=== PATIENT | female | born 1985 ===

== ENCOUNTER 2024-01-10 08:07 | Outpatient (AMB) | payer OTHER, SELFPAY ==
--- NOTE | 2024-01-10 08:07 | AM.OFFWIN_ITS ---
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 She denies any constipation fevers or diarrhea, she states she has been to the emergency room for these issues in the ruled out any acute issues. She states she went to the day [facility] last May and her symptoms have gotten worse since then. She has tried removing lactose from her diet with no improvement she has tried removing gluten from her diet with no improvement. She has tried getting in with her primary care physician but is unable to get in with him until May. Patient is also looking for a referral to warm in worker as she has an itchy dry scalp. She has tried many different shampoos and treatments including selenium shampoo. She does take an allergy pill daily. She is unable to see her PCP to get this referral. [facility] Social History Patient Tobacco Use Status: Never used Tobacco Review of Systems Const All systems reviewed & are unremarkable except as noted in HPI and below Physical Exam Vital Signs: Last Vital Signs Temp 98.7 F 01/10/24 08:11 Pulse 67 01/10/24 08:11 BP 110/68 01/10/24 08:11 Pulse Ox 99 01/10/24 08:11 Oxygen Delivery Method Room Air 01/10/24 08:11 BMI result Body Mass Index 26.7 Const General: cooperative, healthy appearing, comfortable, no acute distress and well developed Orientation/consciousness: patient oriented x3 Limitations: no limitations HEENT Head: Yes other (dry scalp with large white flakes) Eyes General: appearance normal, both eyes and all related structures Neck Neck: Yes normal visual inspection and Yes full ROM Resp Effort & Inspection: normal respiratory effort and able to speak in complete sentences GI Inspection: Yes normal to inspection Palpation (GI): Soft to palpation and nontender Skin General skin exam: no rashes or lesions noted Neuro General: patient oriented x3 Extrem General: Yes normal to inspection Assessment & Plan Assessment & Plan (1) Abdominal bloating: Code(s): R14.0 - Abdominal distension (gaseous) Plan: Performed H pylori breath test in office, advised if it comes back negative, I will try to get patient in with Dr. Rodas before May. (2) Dry scalp: Code(s): R23.8 - Other skin changes Plan: Sent referral for Dermatology Plan see above Orders: Orders H Pylori Breath Test Today R14.0 - Abdominal distension (gaseous) Referrals Dermatology Referral R23.8 - Other skin changes Coding Level of Care Code New Pt Level 4 (95066) Diagnoses Abdominal bloating R14.0 Dry scalp R23.8
[2024-01-10 08:11] VITALS: BP 110/68; PULSE 67; TEMP 37.1; O2SAT 99; BMI 26.7
== END 2024-01-10 09:16 | disposition home or self-care (01) ==
PROVIDERS: PCP Family Medicine; Visit Provider Physician Assistant
DX: R14.0 Abdominal distension (gaseous) (principal); R23.8 Other skin changes
CPT/HCPCS: 99203

== ENCOUNTER 2024-01-10 10:27 | Outpatient (REF) | payer OTHER, SELFPAY ==
[2024-01-10 13:19] LABS: H Pylori Breath Test Negative (Negative)
== END 2024-01-10 10:28 | disposition home or self-care (01) ==
LOC: HO.LNP 10:27
PROVIDERS: Visit Provider Physician Assistant
DX: R14.0 Abdominal distension (gaseous) (principal)
CPT/HCPCS: 83013

== ENCOUNTER 2024-01-21 08:28 | Outpatient (AMB) | payer OTHER, SELFPAY ==
--- NOTE | 2024-01-21 08:34 | MHC.PC.OV ---
Vital Signs 01/21/24 08:46 Height 5 ft 4.96 in Weight 159 lb 8 oz BMI 26.6 BP 108/62 Blood Pressure Location Lt brachial Position Sitting Respiration 12 Pulse 67 Pulse Source Pulse Oximeter Temp 97.9 F Temp Source Oral Pulse Oximetry (%) 99 Oxygen Delivery Method Room Air Intake Visit Reasons: New patient, abdominal issues Intake Note: New patient visit. 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 Required: No Is last menstrual period known: No Allergies No Known Allergies Allergy (Verified 01/21/24 08:35) Medication List - Last Reconciled 01/21/24 by MELANIA Maurer acyclovir 500 mg (1.25 x 400 mg) PO DAILY hydrocortisone 1% (Anti-Itch (hydrocortisone)) 1 appl topical TID 10 days levonorgestrel (Mirena) intrauterine loratadine-pseudoephedrine 5-120 mg ER (Claritin-D 12 Hour) 1 tab PO BID multivitamin 1 tab PO DAILY pantoprazole (Protonix) 20 mg PO DAILY 14 days Tobacco use date assessed: 01/21/24 Dental Screening Dental Screen Date: 01/21/24 Did you have a dental visit in the last 12 months?: No Did you have a dental problem in the last 6 months where you did not have access to dental care?: No Was dental information given to patient?: Patient declined HPI HPI Comments History of Present Illness Details Patient is a 38-year-old female, new patient to me, who presents for gastrointestinal problems. She was seen as a walk-in on 01/10/2024. She complains of 8 months of increased gas, some acid reflux and some nausea. She has visible bloating intermittently. She reported going to the emergency room for these issues. No acute cause for her symptoms was identified, per patient. She tried removing lactose from her diet with no improvement. She had the same result when she removed gluten. She tried picot antacid which alleviates the pressure. 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 She had a negative H pylori breath test on 01/10/2024. Denies smoker, denies alcohol. Denies known family history of GI symptoms. Denies weight loss and denies blood in stools. Denies vomiting and diarrhea. She gets constipated easily, but this is prevented by making sure she gets enough fiber. This predates her other symptoms. She has a history of genital herpes and takes acyclovir 500 mg daily for prophylaxis. She requests a refill. She has an itchy, red patch on her left wrist for the past week. She tried Neosporin without improvement. She would like a referral to vascular surgery for varicose veins on her right leg. She uses compression stockings. She would like a referral to Dermatology for acne breakouts on her chest and back. 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 1. Little interest or pleasure in doing things: not at all 2. Feeling down, depressed, or hopeless: not at all 3. Trouble falling or staying asleep, or sleeping too much: not at all 4. Feeling tired or having little energy: not at all 5. Poor appetite or overeating: not at all 6. Feeling bad about yourself - or that you are a failure or have let yourself or your family down: not at all 7. Trouble concentrating on things, such as reading the newspaper or watching television: not at all 8. Moving or speaking so slowly that other people could have noticed. Or the opposite - being so fidgety or restless that you have been moving around a lot more than usual: several days 9. Thoughts that you would be better off or of hurting yourself in some way: not at all Total score: 1 Depression Screening Interpretation: Negative Depression Screening Done: Yes 78294 - PHQ-9 Billing: Yes Source: Developed by Drs. Aj Chamorro, SarahPaolo Noriega and colleagues, with an educational milana from [employer]. AUDIT C Alcohol Use Questionnaire (AUDIT-C) 1. How often do you have a drink containing alcohol?: Monthly or less 2. How many drinks containing alcohol do you have on a typical day when you are drinking?: 1 or 2 3. How often do you have six or more drinks on one occasion?: Never Total Score: 1 MICHELLE-7 AMB Questionnaire MICHELLE-7 Date MICHELLE - 7 assessed: 01/21/24 Feeling nervous, anxious, or on edge: 0 = Not at all Not being able to stop or control worryin = Not at all Worrying too much about different things: 1 = Several days Trouble relaxin = Several days Being so restless that it is hard to sit still: 0 = Not at all Becoming easily annoyed or irritable: 0 = Not at all Feeling afraid as if something awful might happen: 0 = Not at all Total MICHELLE-7 score (0-4 normal; 5-9 mild; 10-14 moderate; 15-21 severe): 2 Source: Developed by Drs. Aj Chamorro, Paolo Vergara and colleagues, with an educational milana from [employer]. MICHELLE-7 Assessment Billing MICHELLE-7 Assessment Tool: MICHELLE-7 Assessment 43138 Physical exam (Primary Care) Vital Signs: Last Vital Signs Temp 97.9 F 01/21/24 08:46 Pulse 67 01/21/24 08:46 Resp 12 01/21/24 08:46 BP 108/62 01/21/24 08:46 Pulse Ox 99 01/21/24 08:46 Oxygen Delivery Method Room Air 01/21/24 08:46 BMI result Body Mass Index 26.6 Tobacco/Smoking Status: Tobacco use Status Tobacco use date assessed 01/21/24 01/21/24 08:45 Patient Tobacco Use Status Never used Tobacco 01/21/24 08:34 e-Cigarette/Vaping Use Never Used 01/21/24 08:45 PHQ-9: PHQ-9 Score PHQ-9: Total score 1 01/21/24 09:22 Depression Screening Interpretation: Negative Const Other: Constitutional: Alert, in no distress. Head: Normocephalic. Eyes: Pupils are equal, round and reactive to light. Extraocular muscles intact. Neck: Supple, Full range of motion. No lymphadenopathy. No palpable thyroid masses. Respiratory: Clear to auscultation. Cardiovascular: S1 S2 regular. No murmurs. Gastrointestinal: Abdomen soft, non-tender, non-distended. Normal bowel sounds. No palpable masses. Genitourinary: No costovertebral angle tenderness. Skin: 2 cm erythematous rough patch on the left wrist Psychiatric: Normal mood and affect Extremities: Varicose veins noted on right lower extremity Assessment and Plan Assessment & Plan (1) Dyspepsia: Code(s): R10.13 - Epigastric pain Plan: Ordered abdominal ultrasound and blood work for evaluation. Stop [id number] antacid. Trial of Protonix 20 mg daily for 14 days. Trial of simethicone as needed for abdominal bloating/gas. If workup is negative we will proceed with referral to Gastroenterology. (2) Acne vulgaris: Code(s): L70.0 - Acne vulgaris Plan: Refer to dermatology. (3) Dermatitis: Code(s): L30.9 - Dermatitis, unspecified Plan: Hydrocortisone 1% cream twice daily for 10 days. Call if this does not resolve. (4) Varicose veins of lower extremity: Code(s): I83.90 - Asymptomatic varicose veins of unspecified lower extremity Qualifiers: Laterality: right Varicose vein complication: pain Qualified Code(s): I83.811 - Varicose veins of right lower extremity with pain (5) Genital herpes: Code(s): A60.00 - Herpesviral infection of urogenital system, unspecified Qualifiers: Herpes simplex infection site: other site of urogenital tract Qualified Code(s): A60.09 - Herpesviral infection of other urogenital tract Plan: Refilled acyclovir for the patient. Orders: Orders Comprehensive Met. Panel Today I83.90 - Asymptomatic varicose veins of unspecified lower extremity, L30.9 - Dermatitis, unspecified, L70.0 - Acne vulgaris, R10.13 - Epigastric pain TSH reflex Free T4 Today E66.9 - Obesity, unspecified, I83.90 - Asymptomatic varicose veins of unspecified lower extremity, L30.9 - Dermatitis, unspecified, L70.0 - Acne vulgaris, R10.13 - Epigastric pain Lipase Today I83.90 - Asymptomatic varicose veins of unspecified lower extremity, L30.9 - Dermatitis, unspecified, L70.0 - Acne vulgaris, R10.13 - Epigastric pain IRON PROFILE Today I83.90 - Asymptomatic varicose veins of unspecified lower extremity, L30.9 - Dermatitis, unspecified, L70.0 - Acne vulgaris, R10.13 - Epigastric pain Complete Blood Count Auto Diff Today I83.90 - Asymptomatic varicose veins of unspecified lower extremity, L30.9 - Dermatitis, unspecified, L70.0 - Acne vulgaris, R10.13 - Epigastric pain US abdomen complete Today R10.13 - Epigastric pain Referrals Dermatology Referral L70.0 - Acne vulgaris Vascular Surgery Referral I83.90 - Asymptomatic varicose veins of unspecified lower extremity Medications: New hydrocortisone 1% (Anti-Itch (hydrocortisone)) 1 appl topical TID 10 days 28.4 grams 0RF pantoprazole (Protonix) 20 mg PO DAILY 14 days 14 tabs 0RF acyclovir 500 mg (1.25 x 400 mg) PO DAILY 90 tabs 3RF simethicone (Gas Relief (simethicone)) after meals and before bedtime 180 mg PO QID PRN 120 caps 0RF abdominal distention Coding Level of Care Code Tele Est Pt Level 5 (57714) Complex EM visit Add On G2211 Diagnoses Dyspepsia R10.13 Acne vulgaris L70.0 Dermatitis L30.9 Varicose veins of right lower extremity with pain I83.811 Laterality: right Varicose vein complication: pain Herpes simplex infection of other site of genitourinary tract A60.09 Herpes simplex infection site: other site of urogenital tract Additional Codes MICHELLE-7 Assessment Billing - MICHELLE-7 Assessment Tool: MICHELLE-7 Assessment [id number] ([id number]) Time Spent (min) 40 Comment 40 minutes were spend reviewing/updating the chart, seeing the pt and coordinating tx
[2024-01-21 08:46] VITALS: BP 108/62; PULSE 67; RESP 12; TEMP 36.6; O2SAT 99; BMI 26.6
== END 2024-01-21 09:21 | disposition home or self-care (01) ==
PROVIDERS: PCP Physician Assistant Medical; Visit Provider Physician Assistant Medical
DX: R10.13 Epigastric pain (principal); L70.0 Acne vulgaris; L30.9 Dermatitis, unspecified; I83.811 Varicose veins of right lower extremity with pain; A60.09 Herpesviral infection of other urogenital tract
CPT/HCPCS: 99215; G2211

== ENCOUNTER 2024-01-21 09:35 | Outpatient (REF) | payer OTHER, SELFPAY ==
[2024-01-21 11:29] LABS: MANUAL DIFF FLAG NO
[2024-01-21 12:05] LABS: Basophils Percent Auto 0.5 % (0-2); Eosinophils Absolute Auto 0.2 X10*3/uL (0.0-0.4); Eosinophils Percent Auto 3.4 % (0-4); Hematocrit 39.5 % (37.0-47.0); Hemoglobin 13.6 g/dl (12.0-16.0); Imm Gran Abs Auto 0.02 X10*3/uL (0.00-0.03); Imm Gran Pct Auto 0.3 % (0.0-0.4); Lymphocytes Absolute Auto 1.5 X10*3/uL (1.2-4.9); Lymphocytes Percent Auto 25.2 % (20-40); Mean Corpuscular HGB Conc 34.4 g/dl (31.0-35.0); Mean Corpuscular Hemoglobin 31.1 pg (27.0-33.0); Mean Corpuscular Volume 90.4 fL (80.0-98.0); Mean Platelet Volume 11.5 fL (9.4-12.3); Monocytes Absolute Auto 0.5 X10*3/uL (0.1-1.2); Monocytes Percent Auto 7.6 % (2-11); Neutrophils Absolute Auto 3.7 x10*3/uL (2.0-8.3); Platelet Count 257 X10*3/uL (160-400); Red Blood Count 4.37 X10*6/uL (4.20-5.50); Red Cell Distribution Width 12.7 % (11.0-16.0); White Blood Count 5.9 X10*3/uL (4.8-10.8)
[2024-01-21 12:32] LABS: Alanine Aminotransferase 23 U/L (0-31); Albumin Level 4.1 g/dL (3.5-5.0); Alkaline Phosphatase 67 U/L (39-117); Anion Gap 9 (12-20); Aspartate Amino Transferase 24 U/L (5-31); Bilirubin Total 0.4 mg/dL (0.0-1.0); Blood Urea Nitrogen 20 mg/dL (9-16); Calcium 8.9 mg/dL (8.4-10.2); Carbon Dioxide 26 mmol/L (22-29); Chloride 111 mmol/L (96-108); Estimated Glomerular Filt Rate > 60; Glucose Random 90 mg/dL (60-115); Iron 93 mcg/dL (30-160); Lipase 36 U/L (8-78); Percent Iron Saturation 33 % (15-50); Sodium 142 mmol/L (135-145); Total Iron Binding Capacity 286 mcg/dL (228-428); Total Protein 6.9 g/dL (6.5-8.0); Unsaturated Iron Binding 193 ug/dL
[2024-01-21 12:49] LABS: TSH reflex Free T4 1.59 uIU/mL (0.32-4.0)
== END 2024-01-21 09:36 | disposition home or self-care (01) ==
LOC: HO.WFDLDS 09:35
PROVIDERS: Visit Provider Physician Assistant Medical
DX: R10.13 Epigastric pain (principal); I83.90 Asymptomatic varicose veins of unspecified lower extremity; L30.9 Dermatitis, unspecified; L70.0 Acne vulgaris; E66.9 Obesity, unspecified
CPT/HCPCS: 36415; 80053; 83540; 83690; 84443; 85025

== ENCOUNTER 2024-02-04 09:15 | Outpatient (REF) | payer OTHER, SELFPAY ==
--- NOTE | ~2024-02-04 | US_ITS ---
EXAMINATION: US ABDOMEN COMPLETE CLINICAL INFORMATION: Epigastric pain. COMPARISON: None available. TECHNIQUE: Real-time imaging of the abdominal viscera. FINDINGS: PANCREAS: Normal. ABDOMINAL AORTA: The proximal, mid, and distal segments are normal in caliber. INFERIOR VENA CAVA: Visualized portions are normal. LIVER: Normal. The liver is normal in size. The liver contour is normal. Parenchymal echogenicity is normal. No focal hepatic lesion. There is no intrahepatic biliary duct dilatation seen. GALLBLADDER: Normal. The gallbladder is physiologically distended without evidence of stones, sludge, polyps, wall thickening or pericholecystic fluid. No sonographic Mahan's sign. COMMON BILE DUCT: Normal in caliber measuring 0.5 cm in diameter. RIGHT KIDNEY: Normal. No hydronephrosis. No renal calculi or focal parenchymal lesions. The kidney measures 11.8 cm in maximum dimension. LEFT KIDNEY: Normal. No hydronephrosis. No renal calculi or focal parenchymal lesions. The kidney measures 12.3 cm in maximum dimension. SPLEEN: Normal. The spleen measures 10.5 cm in maximum dimension. FREE FLUID: None. US/US abdomen complete IMPRESSION: Normal abdominal ultrasound.
== END 2024-02-04 09:16 | disposition home or self-care (01) ==
LOC: HO.US 09:15
PROVIDERS: PCP Physician Assistant Medical; Visit Provider Physician Assistant Medical
DX: R10.13 Epigastric pain (principal)
CPT/HCPCS: 76700

== ENCOUNTER 2024-02-26 11:59 | Outpatient (AMB) | payer OTHER, SELFPAY ==
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
[2024-02-26 12:17] VITALS: BP 102/62; PULSE 61; RESP 16; TEMP 36.6; O2SAT 98
== END 2024-02-26 12:58 | disposition home or self-care (01) ==
PROVIDERS: PCP Physician Assistant Medical; Visit Provider Nurse Practitioner Family
DX: A60.09 Herpesviral infection of other urogenital tract (principal)
CPT/HCPCS: 99214

== ENCOUNTER 2024-03-16 14:25 | Outpatient (AMB) | payer OTHER, SELFPAY ==
--- NOTE | 2024-03-16 14:48 | MHC.PC.OV ---
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 She saw dermatology for acne. They gave her a topical medication. It does not work so she is going to follow up to ask about oral medication. She has dryness and itchiness inside of her ears. This comes and goes. She will speak about it with a receiver/laborer, and I prescribed a trial of topical steroid and reviewed side effects with her. She continues with chronic, daily abdominal bloating regardless of what she eats. She tried a lactose-free and gluten free diet. Abdominal ultrasound was nondiagnostic. H pylori negative. CBC, TSH, lipase, LFTs, H pylori breath test WNL. She wonders if this is related to stress or high cortisol. 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 She feels like she is in a constant state of anxiety even though she does not have any high stress situations anymore since returning from deployment. She said she always feels afraid. No depression. No SI or HI. She would like to talk to a therapist. She is not interested in anxiety medication. I referred her to [facility]. She has a mild heart murmur on exam. No chest pain, shortness of breath, leg swelling or dizziness. Her grandmother has a valve issue. EKG normal today aside from mild sinus bradycardia. No dizziness or syncope. Echocardiogram ordered. ROS: Constitutional: No unexplained weight loss, fever, chills, fatigue or night sweats. Eyes: No vision changes, blurry vision, double vision, eye pain, eye redness, eye discharge. ENT: No hearing loss, sneezing, congestion, runny nose or sore throat. Respiratory: No shortness of breath, cough or sputum production. Cardiovascular: No chest pain, chest pressure or chest discomfort. No palpitations or pedal edema. Gastrointestinal: No anorexia, nausea, vomiting or diarrhea. No abdominal pain or blood in stool. Genitourinary: No dysuria, hematuria, urinary frequency. Neurologic: No headache, dizziness, syncope Hematologic/Lymphatics: No bleeding or swollen glands Endocrine: No cold or heat intolerance. No polyuria or polydipsia. Psychiatric: No depression. No SI/HI. Physical exam: Constitutional: Alert, in no distress. Head: Normocephalic. Eyes: Pupils are equal, round and reactive to light. Extraocular muscles intact. Ear, Nose and Throat: Canals clear. TMs normal. Normal nasal mucosa. No nasal discharge. No oral lesions. Neck: Supple, Full range of motion. No lymphadenopathy.. Respiratory: Clear to auscultation. Cardiovascular: S1 S2 regular. I/ systolic murmur. Gastrointestinal: Abdomen soft, non-tender, non-distended. Normal bowel sounds. No palpable masses. Genitourinary: No costovertebral angle tenderness. Neurologic: No focal neurological deficits. Symmetric patellar reflexes. Moves all extremities spontaneously. Sensation intact bilaterally. Skin: No rashes or lesions. Musculoskeletal: No gross deformities. Normal range of motion. Extremities: Warm and well perfused. No clubbing, cyanosis or edema. 3+ peripheral pulses bilaterally. Psychiatric: Normal mood and affect [facility] Medical History (Updated 03/16/24 @ 15:37 by MELANIA Maurer) Murmur Routine physical examination Anxiety Genital herpes Acne vulgaris Dermatitis Varicose veins of lower extremity Dyspepsia Surgical History (Updated 01/21/24 @ 09:01 by MELANIA Maurer) H/O abdominoplasty Hx of tonsillectomy History of bilateral breast reduction surgery Social History Housing: Apartment Patient Tobacco Use Status: Never used Tobacco e-Cigarette/Vaping Use: Never Used Second Hand Smoke Exposure: No service: Yes Current occupational status: employed 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 Aj Chamorro, Sarah Danielson, Paolo Mariscal and colleagues, with an educational milana from [employer]. Physical exam (Primary Care) Vital Signs: Last Vital Signs Pulse 62 03/16/24 14:51 Resp 12 03/16/24 14:51 BP 101/59 L 03/16/24 14:51 Pulse Ox 98 03/16/24 14:51 Oxygen Delivery Method Room Air 03/16/24 14:51 BMI result Body Mass Index 27.7 Tobacco/Smoking Status: Tobacco use Status Tobacco use date assessed 01/21/24 03/16/24 14:54 Patient Tobacco Use Status Never used Tobacco 03/16/24 14:54 e-Cigarette/Vaping Use Never Used 03/16/24 14:54 Office Procedures EKG Details: EKG showed sinus bradycardia with a heart rate of 51 beats per minute. Reviewed by Dr. Prince. [id number], Complete Assessment and Plan Assessment & Plan (1) Routine physical examination: Code(s): Z00.00 - Encounter for general adult medical examination without abnormal findings (2) Abdominal bloating: Code(s): R14.0 - Abdominal distension (gaseous) (3) Anxiety: Code(s): F41.9 - Anxiety disorder, unspecified (4) Murmur: Code(s): R01.1 - Cardiac murmur, unspecified (5) Dermatitis: Code(s): L30.9 - Dermatitis, unspecified Plan Patient is seen today for a routine physical. As part of this visit we reviewed the following issues, which are considered and essential part of preventative health in this age group: - Breast Cancer screening - Annual Unloading Checker exam - Blood pressure screening annually - Cholesterol screening - Osteoporosis prevention including calcium/vitamin D intake, weight bearing exercise & smoking cessation - Nutritional and exercise counseling - Counseling of injury prevention including fire prevention, smoke alarms and seat belt usage - Screening for depression - Prevention of and/or testing for infectious diseases - Education about skin cancer - Recommendations about immunizations -she will obtain a copy of her records from the - Recommendation of an eye exam - Screening for substance abuse Follow up in 3 months for anxiety, murmur, bloating. Orders: Orders Lipid Panel Today F41.9 - Anxiety disorder, unspecified, Z13.6 - Encounter for screening for cardiovascular disorders Cortisol Random Today F41.9 - Anxiety disorder, unspecified, Z13.6 - Encounter for screening for cardiovascular disorders CA echo transthoracic complete Today R01.1 - Cardiac murmur, unspecified AMB EKG-In Office Today R01.1 - Cardiac murmur, unspecified, Z13.6 - Encounter for screening for cardiovascular disorders Referrals Gastroenterology Referral R14.0 - Abdominal distension (gaseous) Psychology Referral F41.9 - Anxiety disorder, unspecified Medications: New fluocinolone acetonide oil 0.01% 5 drps otic (ears) BID 7 days 20 mL 0RF Patient Instructions: Trial of Low Fodmap diet Gastroenterology will contact you to schedule an appoinment Coding Level of Care Code Est Pt Prev Care [id number]) Diagnoses Routine physical examination Z00.00 Abdominal bloating R14.0 Anxiety F41.9 Murmur R01.1 Dermatitis L30.9 CPT Codes EKG - CPT: [id number], Complete ([id number])
[2024-03-16 14:51] VITALS: BP 101/59; PULSE 62; RESP 12; O2SAT 98; BMI 27.7
== END 2024-03-16 15:59 | disposition home or self-care (01) ==
PROVIDERS: PCP Physician Assistant Medical; Visit Provider Physician Assistant Medical
DX: Z00.00 Encounter for general adult medical examination without abnormal findings (principal); R14.0 Abdominal distension (gaseous); F41.9 Anxiety disorder, unspecified; R01.1 Cardiac murmur, unspecified; L30.9 Dermatitis, unspecified
CPT/HCPCS: 93000; 99395

== ENCOUNTER 2024-03-26 10:07 | Outpatient (REF) | payer OTHER, SELFPAY ==
[2024-03-26 12:31] LABS: Cholesterol 111 mg/dL (<200); HDL Cholesterol 39 mg/dL (>40); LDL Cholesterol Calculated 63 mg/dL (<100); Triglycerides 46 mg/dL (<150)
[2024-03-26 12:47] LABS: Cortisol Random 6.9 ug/dL
[2024-03-26 14:03] LABS: Syphilis Screen Nonreactive (Nonreactive)
[2024-03-26 14:04] LABS: HBsAGNum1 0.28 S/CO (0.00-0.99); HIV AB/AG Nonreactive (Nonreactive); HIV Num 1 0.07 S/CO (0.00-0.99); Hepatitis B Surface Antigen Negative (Negative); ~HepC Num1 0.12 S/CO (0.00-0.79); ~Hepatitis C Antibody Nonreactive (Nonreactive)
[2024-03-26 19:22] LABS: CT PCR NOT DETECTED (Not Detect.); NG PCR NOT DETECTED (Not Detect.)
[2024-03-27 10:44] LABS: Bacterial Vaginosis PCR NEGATIVE (Negative); Candida Group PCR NOT DETECTED (Not Detect); Candida glab krusei PCR NOT DETECTED (Not Detect); Trichomonas vaginalis PCR NOT DETECTED (Not Detect)
[2024-03-31 17:28] LABS: Herpes Simplex Type 2 IgG 2.84 index
== END 2024-03-26 10:08 | disposition home or self-care (01) ==
LOC: HO.HHCL 10:07
PROVIDERS: Advanced Practice Midwife; Visit Provider Physician Assistant Medical
DX: F41.9 Anxiety disorder, unspecified (principal); Z13.6 Encounter for screening for cardiovascular disorders; A60.09 Herpesviral infection of other urogenital tract; Z11.3 Encounter for screening for infections with a predominantly sexual mode of transmission; R32 Unspecified urinary incontinence; N89.8 Other specified noninflammatory disorders of vagina; Z20.2 Contact with and (suspected) exposure to infections with a predominantly sexual mode of transmission
CPT/HCPCS: 0352U; 36415; 80061; 82533; 86695; 86696; 86780; 86803; 87340; 87389; 87491; 87591; 99202

== ENCOUNTER 2024-03-26 10:13 | Outpatient (AMB) | payer OTHER, SELFPAY ==
[2024-03-26 10:25] VITALS: BP 102/60; BMI 27.3
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
== END 2024-03-26 11:24 | disposition home or self-care (01) ==
PROVIDERS: PCP Physician Assistant Medical; Visit Provider Advanced Practice Midwife
DX: A60.09 Herpesviral infection of other urogenital tract (principal); Z11.3 Encounter for screening for infections with a predominantly sexual mode of transmission; R32 Unspecified urinary incontinence; Z91.410 Personal history of adult physical and sexual abuse; Z97.5 Presence of (intrauterine) contraceptive device
CPT/HCPCS: 99204; G2211

== ENCOUNTER 2024-03-26 11:25 | Outpatient (REF) | payer OTHER, SELFPAY | END 2024-03-26 11:26 | disposition home or self-care (01) | LOC: HO.LAB 11:25 | PROVIDERS: Visit Provider Advanced Practice Midwife | DX: Z13.89 Encounter for screening for other disorder (principal) ==

== ENCOUNTER 2024-03-31 13:37 | Outpatient (AMB) | payer OTHER, SELFPAY ==
--- NOTE | 2024-03-31 13:37 | MHC.OFFVIS ---
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 States they run in her family and would like to make sure they dont worsen. She works 12 hour shifts either standing or sitting non-stop. The VV tend to budge when she works. Pt statse she has tried compression stockings and a low sodium diet. 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 Complaints include pain over varicosities, swelling of lower extremities, cramping, fatigue, and heaviness of the lower extremities. It has been affecting there daily activities including walking and working in the in an ambulatory job. It is noted more so in right leg. Patient denies any previous venous surgery or injections. Patient denies any history of DVT/ PE. Patient denies any history of phlebitis. Trial of compression includes - [id number] They now present for vascular evaluation regarding their varicose veins. 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 Current occupational exposures/hazards: No Cognitive needs: No Hearing needs: No Vision needs: No Female Reproductive History Menstrual Age of Menarche: 17 Review of Systems Const Reports as per HPI ENT Reports no additional complaints Card Denies chest pain, Denies chest pain at rest and Denies chest pain with activity Resp Denies chest congestion and Denies cough GI Reports no additional complaints Musc Details: pain over varicosities, aching of lower extremities, swelling, cramping, heaviness and tiredness, itching Denies abnormal gait Skin/Breast Reports pruritus and Denies wounds Neuro Reports no additional complaints and Denies abnormal gait Psych Denies no additional complaints Physical Exam Vital Signs: BMI result Body Mass Index 27.3 Const General: cooperative, healthy appearing and comfortable Orientation/consciousness: oriented to person, oriented to place and oriented to time Neck Carotids: no bruits Chest Chest palpation & inspection: normal inspection of the chest and normal palpation of entire chest wall Resp Effort & Inspection: normal respiratory effort and able to speak in complete sentences Cardio Rate: regular rate Heart sounds: S1 normal heart sound present and S2 normal heart sound present Peripheral pulses: Peripheral pulses 2+ throughout GI Inspection: Yes normal to inspection Skin Other: +2 edema, spider telangiectasias CEAP Classification C4 - skin color changes Ep - Etiology Primary As - superficial veins P - reflux General skin exam: dry skin Neuro General: oriented to person, oriented to place and oriented to time Extrem Right lower extremity: full ROM, normal capillary refill and edema Left lower extremity: full ROM, normal capillary refill and edema Psych Mental Status: mental status grossly normal Assessment & Plan Assessment & Plan (1) Varicose veins of right lower extremity with inflammation: Code(s): I83.11 - Varicose veins of right lower extremity with inflammation Category: Medical Plan: In short, the patient has evidence of venous insufficiency. I have discussed the pathophysiology with the patient. In addition I have provided informational material regarding venous disease to the patient. We have discussed conservative measures including compression, elevation, and exercise. I have also provided a handout regarding appropriate use of compression stockings and where to purchase good compression stockings as well. I have taken the liberty of ordering venous insufficiency testing with the patient. They will follow up with me after testing. The patient had an opportunity to ask questions regarding the treatment plan. All questions were answered. Imaging studies, laboratory studies and physical exam results were discussed and reviewed in detail. No major barriers to understanding were identified. The patient expressed understanding and agreement with the above treatment plan. The patient is aware they should contact our office by phone for worsening of the current condition or the appearance of new symptoms. Thank you for allowing me to participate in the vascular care of this patient. If you have any questions or concerns regarding the treatment for the above condition please do not hesitate to contact me. The office telephone contact is [phone]. This note is constructed using voice recognition software. While every effort has been made to ensure accuracy, scissors sharpener errors may have been included. Thank you for allowing me to participate in the care of your patient. Yours sincerely, Devin Tavarez MD, FACS, R.P.V.I. Orders: Orders US venous duplex LE BI 1 Week I83.11 - Varicose veins of right lower extremity with inflammation Coding Level of Care Code New Pt Level 4 (62632) Diagnoses Varicose veins of right lower extremity with inflammation I83.11
[2024-03-31 13:38] VITALS: BMI 27.3
== END 2024-03-31 14:20 | disposition home or self-care (01) ==
PROVIDERS: PCP Physician Assistant Medical; Visit Provider Surgery Vascular Surgery
DX: I83.11 Varicose veins of right lower extremity with inflammation (principal)
CPT/HCPCS: 99204

== ENCOUNTER → 2024-03-31 13:37 | Outpatient (BNVA) | payer OTHER, SELFPAY | PROVIDERS: PCP Physician Assistant Medical; Visit Provider Surgery Vascular Surgery | DX: I83.11 Varicose veins of right lower extremity with inflammation (principal) | CPT/HCPCS: 99202 ==